=== PATIENT | female | born 1975 | race Caucasian/White ===

== ENCOUNTER 2022-12-20 09:51 | Emergency (ER) | payer MEDICAID ==
[~2022-12-20] VITALS: Ht 154.9 cm; Wt 69.9 kg
[2022-12-20 10:07] VITALS: BP 120/80; PULSE 76; RESP 18; TEMP 97.9; O2SAT 100
[2022-12-20 11:28] LABS: APPEARANCE,URINE CLEAR (CLEAR); BILIRUBIN,URINE NEGATIVE (NEGATIVE); BLOOD, URINE NEGATIVE (NEGATIVE); COLOR,URINE YELLOW (YELLOW); LEUKOCYTE ESTERASE ,URINE 2+ (NEGATIVE); NITRITE, URINE NEGATIVE (NEGATIVE); PROTEIN,URINE NEGATIVE (NEGATIVE); UGLUCOSE NEGATIVE (NEGATIVE); UROBILINOGEN,URINE 0.2 EU/dL (0.2 - 1)
[2022-12-20 11:33] LABS: BACTERIA,URINE FEW /HPF (None Seen); RBC,URINE 0-5 /HPF (0-5); SQUAMOUS EPITHELIAL CELL,UR 4-10 (MOD) /LPF (0-3 (FEW))
[2022-12-20] MEDS ORDERED: NITR100C7 PO (12:43)
[2022-12-20 12:46] VITALS: BP 115/67; PULSE 74; RESP 17
[2022-12-20 14:04] VITALS: O2SAT 98
== END 2022-12-20 12:47 | disposition home or self-care (01) ==
LOC: MED 09:51
DX: N39.0 Urinary tract infection, site not specified (principal); Z79.899 Other long term (current) drug therapy
CPT/HCPCS: 81001; 81025; 87086; 99283